=== PATIENT | female | born 1945 | race Caucasian/White ===

== ENCOUNTER 2020-09-08 19:41 | Emergency (ER) | payer MEDICARE, BC, SELFPAY ==
[2020-09-08 19:55] VITALS: BP 143/80; PULSE 62; RESP 18; TEMP 36.5; O2SAT 93
--- NOTE | 2020-09-08 20:13 | DI.CT_ITS ---
EXAM: CT CHEST/ABD/PEL W and CT recons thoracic and lumbar spine CLINICAL HISTORY: Fall down 6 stairs TECHNIQUE: Imaging Protocol: Axial computed tomography images with coronal and sagittal reformatted images were created and reviewed CONTRAST MATERIAL: Intravenous: Omnipaque 350 Contrast volume:99 mL Oral: No COMPARISON: No exams were available for comparison FINDINGS: CHEST: Tracheobronchial tree: Patent where visualized. Mediastinum and Aimee: No dominant adenopathy or fluid collection. Pulmonary parenchyma: Infiltrates are seen in the dependent portions of both lungs which may represen t contusions or atelectasis. No architectural distortion. 3 mm noncalcified pulmonary nodule in the anterolateral aspect of the left lower lobe. (Series 6, image 373). Pleura: There is a tiny right apical pneumothorax. No pleural effusion. Heart: The heart is not dilated. No coronary artery calcifications are seen. No pericardial effusion. Aorta: Thoracic aorta non-dilated. Atherosclerosis. Lymph nodes: Within normal limits. Bones:Acute fractures involving the posterior aspects of the right 2nd through 10th ribs. Acute nond isplaced fractures involving the delete right transverse processes and spinous processes of T9, T10 a nd T11. Tubes, Catheters, and Lines: Soft tissues: Unremarkable. CT recons thoracic spine: Acute fractures involving the T3 and T4 vertebral bodies. There is mild re tropulsion of the T4 vertebral body into the central spinal canal. There is 3-4 mm of retrolisthesis of T4 with respect T5. There also appears to be mild widening of the T4-T5 facet joints. ABDOMEN: Liver: Normal density. No measurable mass. Portal, Superior Mesenteric, and Splenic Veins: Unremarkable. Gallbladder and Biliary Tract: No radiodense calculus or dilation. Pancreas: Normal density, no abnormal calcifications or inflammatory process. Spleen: Normal. Adrenals: No masses seen. Kidneys: Normal size, contour and axis. No radiodense stones or obstructive uropathy. No masses seen. Abdominal Aorta: Abdominal portion non-dilated. Atherosclerosis. Bowel: No obstruction or bowel wall thickening. No evidence of acute appendicitis. Moderate amount o f retained stool. Peritoneal Cavity: No ascites, collection or mesenteric inflammatory response. Lymph Nodes: Within normal limits. Bones: Mildly displaced fracture of the right transverse far process of L3. Nondisplaced fracture of the right transverse process of L4. Degenerative changes in the spine. There is a prior bilateral hip prostheses. Grade 1 pseudo spondylolisthesis of L4 on L5 is noted. Compression deformities are seen of T11 and L1. These are of indeterminate age. Mild cortical regularity of the anterior and po sterior holland of the L4 vertebral body. This may represent an acute fracture. Soft Tissues: Unremarkable. PELVIS: Bladder: Symmetric distention, no gross wall thickening. There is artifact obscuring portions of the urinary bladder from the patient's bilateral total hip replacements. Reproductive Organs: Unremarkable as visualized. Lymph Nodes: Within normal limits. Bones: Please see above. CT recons lumbar spine: Right transverse process fractures of L3 and L4. The right L3 transverse pro cess fracture is mildly displaced. Cortical regularity of the anterior and posterior aspect of the L 4 vertebral body which may represent an acute fracture. IMPRESSION: 1. Acute fractures involving the right transverse processes of L3 and L4. 2. Mild cortical regularity of the anterior and posterior holland of the L4 vertebral body which may re present acute fracture. 3. No intra-abdominal or pelvic process. 4. Acute fractures involving the right 2nd through 10th ribs. 5. Acute fractures involving the right transverse processes and spinous processes of T9, T10 and T11. 6. Acute fractures involving the T3 and T4 vertebral bodies. There is mild retropulsion of the T4 ve rtebral body into the spinal canal. 7. Old T11 compression fracture. RADIATION DOSE DELIVERED: Total DLP DATA REPOSITORY: All CT scans at this facility are submitted to the National Radiology Data Registry (NRDR) Dose Index Registry (DIR) with the [employer] (A[employer]). RADIATION OPTIMIZATION: All CT scans at this facility use at least one of these dose optimization te chniques: automated exposure control; mA and/or kV adjustment per patient size (includes targeted exa ms where dose is matched to clinical indication); or iterative reconstruction.
--- NOTE | 2020-09-08 20:13 | DI.CT_ITS ---
EXAM: CT HEAD CERVICAL SPINE WO CLINICAL HISTORY: Fall down 6 stairs. TECHNIQUE: Imaging Protocol: Axial computed tomography images with coronal and sagittal reformatted images were created and reviewed COMPARISON: No exams were available for comparison FINDINGS: CT Head: Ventricles and Extra axial spaces: Normal in size and morphology for the patient's age. Hemorrhage: None. Cerebral parenchyma: Normal. Midline shift: None. Brainstem/Cerebellum: Normal. Calvarium: Normal. Visualized Paranasal sinuses/Mastoids: Clear. Soft Tissues: Unremarkable. CT Cervical Spine: Bones: There is an acute nondisplaced fracture through the lateral aspect of the body of C2. It does not extend to the transverse foramen. Moderate degenerative changes are present throughout the cerv ical spine. Soft Tissues: Unremarkable. Lung Apices: There is a small right apical pneumothorax. IMPRESSION: 1. No acute intracranial process. 2. Nondisplaced acute fracture through the lateral aspect of the body of C2. 3. Small right apical pneumothorax RADIATION DOSE DELIVERED: 1,034.91mGy.cm Total DLP DATA REPOSITORY: All CT scans at this facility are submitted to the National Radiology Data Registry (NRDR) Dose Index Registry (DIR) with the [employer] (ACR). RADIATION OPTIMIZATION: All CT scans at this facility use at least one of these dose optimization te chniques: automated exposure control; mA and/or kV adjustment per patient size (includes targeted exa ms where dose is matched to clinical indication); or iterative reconstruction.
[2020-09-08] MEDS: MORPHine 10 MG/ML VIAL 2 MG IVP (20:25)
[2020-09-08 20:26] LABS: Abs Immature Grans 0.43 10^3/uL (0.0-0.06); Absolute Lymphocyte Count 1.74 10^3/uL (1.2-3.4); Basophils % 0.2; Eosinophils % 0.8; HCT 40.8 % (36.0-46.0); HGB 13.2 g/dL (11.2-15.7); Immature Grans % 3.5; Lymphocytes % 14.3; MCH 30.8 pg (27.0-33.0); MCHC 32.4 % (32.0-36.0); MCV 95.3 fL (80-95); MPV 9.8 fL (8.0-11.0); Monocytes % 5.3; Neutrophils % 75.9; Nucleated RBC 0 %; Platelet Count 235 10^3/uL (130-400); RBC 4.28 10^6/uL (3.93-5.22); RDW-SD 42.4 fL; WBC 12.17 10^3/uL (4.4-10.8)
[2020-09-08] MEDS: Normal Saline 1,000 ML 1000 ML IV (20:26)
[2020-09-08 20:27] LABS: Absolute Basophil Count 0.02 10^3/uL (0.0-0.2); Absolute Monocyte Count 0.65 10^3/uL (0.1-0.8); Absolute Neutrophil Count 9.24 10^3/uL (1.2-6.7)
[2020-09-08 20:39] LABS: PTT Activated 18.5 sec (21.0-27.8); Prothrombin Time 10.1 sec (9.3-11.0)
[2020-09-08 20:43] LABS: ALT 97 U/L (14-59); AST 89 U/L (15-37); Albumin 3.9 g/dL (3.4-5.0); Alkaline Phosphatase 51 U/L (46-116); Anion Gap 4.2 mmol/L (3-11); BUN 17 mg/dL (7-18); Bilirubin, Total 0.3 mg/dL (0.2-1.0); CO2 29.8 mmol/L (21.0-32.0); CREATININE 0.89 mg/dL (0.55-1.02); Calcium 9.5 mg/dL (8.5-10.1); Chloride 103 mmol/L (98-107); Glucose 113 mg/dL (74-106); Lipase 90 U/L (73-393); Potassium 4.6 mmol/L (3.5-5.1); Sodium 137 mmol/L (136-145); Total Protein 6.6 g/dL (6.4-8.2)
[2020-09-08] MEDS: Omnipaque 350 MG/ML 100 ML BTL IV (20:46)
[2020-09-08 21:17] VITALS: BP 145/67; PULSE 67; RESP 16; O2SAT 94
--- NOTE | 2020-09-08 21:25 | DI.VRAD_ITS ---
Addendum created by Hector Willis DO on 09/08/2020 10:00:43 PM EDT: Noted but not mentioned on initial report, a minute right apical pneumothorax is suspected. It is better demonstrated on concurrent CT examination of chest. Nondisplaced fracture of right 2nd rib is subtly demonstrated on the CT study of cervical spine and better seen on concurrent CT examination of chest. There is a nondisplaced fracture through lateral aspect body of C2 which does not extend to transverse foramen, 06/30, . Additional findings were called to and discussed with HAYLEY Santacruz, at approximately 10:00 p.m. on September 08, 2020 Initial report created on 09/08/2020 9:25:49 PM EDT: PROCEDURE INFORMATION: Exam: CT Head Without Contrast Exam date and time: 09/08/2020 8:47 PM Age: 75 years old Clinical indication: Injury or trauma; Blunt trauma (contusions or hematomas); Patient HX: S/P fall down 6 stairs TECHNIQUE: Imaging protocol: Computed tomography of the head without contrast. COMPARISON: No relevant prior studies available. FINDINGS: Brain: There is mild diffuse cerebral atrophy present, consistent with this patient's age. No hemorrhage. Unremarkable white matter. No mass effect. Cerebral ventricles: No ventriculomegaly. Bones/joints: Unremarkable. No acute fracture. Paranasal sinuses: Visualized sinuses are unremarkable. No fluid levels. Mastoid air cells: Visualized mastoid air cells are well aerated. Soft tissues: Unremarkable. IMPRESSION: No acute intracranial abnormality. PROCEDURE INFORMATION: Exam: CT Cervical Spine Without Contrast Exam date and time: 09/08/2020 8:47 PM Age: 75 years old Clinical indication: Injury or trauma; Blunt trauma (contusions or hematomas); Patient HX: S/P fall down 6 stairs TECHNIQUE: Imaging protocol: Computed tomography images of the cervical spine without contrast. COMPARISON: No relevant prior studies available. FINDINGS: Bones/joints: No acute fracture. C5 is minimally subluxed posteriorly with respect to C4 and C6. Multilevel degenerative changes. Discs/Spinal canal/Neural foramina: No significant disc protrusion. No severe spinal canal stenosis. No significant neural foraminal narrowing. Soft tissues: Unremarkable. Lungs: Lung apices are normal. IMPRESSION: 1. No acute fracture. 2. Minimal posterior subluxation of C5. 3. Multilevel degenerative changes. Dictated and Authenticated by: Hector Willis MD. Ordering:XUAN Abdi MD
--- NOTE | 2020-09-08 22:06 | DI.VRAD_ITS ---
PROCEDURE INFORMATION: Exam: CT Chest With Contrast Exam date and time: 09/08/2020 8:47 PM Age: 75 years old Clinical indication: Injury; Blunt trauma; S/P fall down 6 stairs TECHNIQUE: Imaging protocol: Computed tomography of the chest with intravenous contrast. Radiation optimization: All CT scans at this facility use at least one of these dose optimization techniques: automated exposure control; mA and/or kV adjustment per patient size (includes targeted exams where dose is matched to clinical indication); or iterative reconstruction. Contrast material: OMNI 350; Contrast volume: 100 ml; Contrast route: INTRAVENOUS (IV); COMPARISON: No relevant prior studies available. FINDINGS: Lungs: Posterior lung dependent parenchymal changes bilaterally. 3 mm nodule lateral left lower lobe image 38, series 5. Pleural space: No pleural fluid collection. Trace right pneumothorax, also seen on CT cervical spine 09/08/2020. Heart: No cardiomegaly. No pericardial effusion. Aorta: Unremarkable. No aortic aneurysm. Lymph nodes: No enlarged lymph nodes. Bones/joints: Acute non-displaced fractures of the right 8th through 11th posterior ribs and the right 3rd through 7th posterolateral ribs. Acute fracture of the right 2nd posterior rib. Acute fracture of the posteromedial right 3rd rib. Non-displaced fractures of the right 4th, 5th, and 6th anterolateral ribs. Fractures of the right transverse process of T9, T10, and T11. Fractures of the spinous processes T9, T10, and T11. Acute fractures of the T3 and T4 vertebral bodies. 3-4 mm retrolisthesis of T4 with respect to T5 with mild widening of the right T4-5 facet joint. Deformity of the proximal right humerus. Likely old moderate loss of height of T11. Soft tissues: Unremarkable. IMPRESSION: 1. Acute non-displaced fractures of the right 8th through 11th posterior ribs and the right 3rd through 7th posterolateral ribs. Acute fracture of the right 2nd posterior rib. 2. Acute fracture of the posteromedial right 3rd rib. 3. Non-displaced fractures of the right 4th, 5th, and 6th anterolateral ribs. 4. Fractures of the right transverse process of T9, T10, and T11. 5. Fractures of the spinous processes T9, T10, and T11. 6. Acute fractures of the T3 and T4 vertebral bodies. 3-4 mm retrolisthesis of T4 with respect to T5 with mild widening of the right T4-5 facet joint. 7. Likely old moderate loss of height of T11. 8. Trace right pneumothorax, also seen on CT cervical spine 09/08/2020. 9. 3 mm nodule lateral left lower lobe image 38, series 5. For patients at low risk (minimal or absent history of smoking and of other known risk factors), no routine follow-up is indicated. For patients at high risk (history of smoking or of other known risk factors), consider optional CT Chest at 12 months. (Reference: Jairo). REFERENCES: Jairo Ramirez et al. Guidelines for Management of Incidental Pulmonary Nodules Detected on CT Images: From the Fleischner Society 2017. Radiology. 2017;284(1):228-243. PROCEDURE INFORMATION: Exam: CT Abdomen And Pelvis With Contrast Exam date and time: 09/08/2020 8:47 PM Age: 75 years old Clinical indication: Injury; Blunt trauma; S/P fall down 6 stairs TECHNIQUE: Imaging protocol: Computed tomography of the abdomen and pelvis with intravenous contrast. Radiation optimization: All CT scans at this facility use at least one of these dose optimization techniques: automated exposure control; mA and/or kV adjustment per patient size (includes targeted exams where dose is matched to clinical indication); or iterative reconstruction. Contrast material: OMNI 350; Contrast volume: 100 ml; Contrast route: INTRAVENOUS (IV); COMPARISON: No relevant prior studies available. FINDINGS: Liver: Normal. No mass. Gallbladder and bile ducts: Normal. No calcified stones. No ductal dilation. Pancreas: Normal. No ductal dilation. Spleen: Normal. No splenomegaly. Adrenal glands: Normal. No mass. Kidneys and ureters: Normal. No hydronephrosis. Stomach and bowel: Unremarkable. No obstruction. No mucosal thickening. Appendix: No evidence of appendicitis. Intraperitoneal space: Unremarkable. No free air. No significant fluid collection. Vasculature: Unremarkable. No abdominal aortic aneurysm. Lymph nodes: Unremarkable. No enlarged lymph nodes. Urinary bladder: Unremarkable as visualized. Reproductive: Atrophic uterus and ovaries. Bones/joints: Spinal degenerative changes. Acute fracture of the right transverse process of L3. Non-displaced fracture of the right transverse process of L4. Mild cortical irregularity of the anterior and posterior aspect of L4 suggesting possible acute fracture. Retrolisthesis of L5 with respect to L4. Age-indeterminate moderate compression of L1. Streak artifact from bilateral metallic hip prostheses obscures portions of the lower pelvis. Soft tissues: Fat-containing umbilical hernia. IMPRESSION: 1. Acute fracture of the right transverse process of L3. 2. Non-displaced acute fracture of the right transverse process of L4. 3. Mild cortical irregularity of the anterior and posterior aspect of L4 suggesting possible acute fracture. 4. No acute intra-abdominal or pelvic process. Dictated and Authenticated by: Neel Shetty MD. Ordering:XUAN Abdi MD
--- NOTE | 2020-09-08 22:15 | DI.VRAD_ITS ---
PROCEDURE INFORMATION: Exam: CT Thoracic Spine Without Contrast Exam date and time: 09/08/2020 8:48 PM Age: 75 years old Clinical indication: Injury; Blunt trauma. S/P fall down 6 stairs TECHNIQUE: Imaging protocol: Computed tomography images of the thoracic spine without contrast. COMPARISON: No relevant prior studies available. FINDINGS: Vertebrae: Acute fractures of the T3 and T4 vertebral bodies. 3-4 mm retrolisthesis of T4 with with respect to T5 with mild widening of each T3-4 and T4-5 facet joint. Fractures of the right transverse process of T9, T10, and T11. Fractures of the spinous processes T9, T10, and T11. Likely old moderate compression T11. Soft tissue edema anterolateral to the T3 / T4 region. Discs/Spinal canal/Neural foramina: No significant disc protrusion. No significant neural foraminal narrowing. Other bones/joints: Acute fracture of the right 2nd posterior rib. Acute fracture of the posteromedial right 3rd rib. Acute non-displaced fractures of the right 8th through 11th posterior ribs. Soft tissues: Soft tissue edema anterolateral to the T3 / T4 region. Pleural space: Trace right pneumothorax. IMPRESSION: 1. Acute fractures of the T3 and T4 vertebral bodies. 3-4 mm retrolisthesis of T4 with with respect to T5 with mild widening of the each T3-4 and T4-5 facet joint (greater at T4-5). 2. Acute fracture of the right 2nd posterior rib. 3. Acute fracture of the posteromedial right 3rd rib. 4. Acute non-displaced fractures of the right 8th through 11th posterior ribs. 5. Fractures of the right transverse process of T9, T10, and T11. 6. Fractures of the spinous processes T9, T10, and T11. 7. Likely old moderate compression T11. 8. Trace right pneumothorax. PROCEDURE INFORMATION: Exam: CT Lumbar Spine Without Contrast Exam date and time: 09/08/2020 8:48 PM Age: 75 years old Clinical indication: Injury; Blunt trauma. S/P fall down 6 stairs TECHNIQUE: Imaging protocol: Computed tomography images of the lumbar spine without contrast. COMPARISON: No relevant prior studies available. FINDINGS: Vertebrae: Acute fracture of the right transverse process of L3. Non-displaced fracture of the right transverse process of L4. Mild cortical irregularity of the anterior and posterior aspect of L4 suggesting possible acute fracture. Age-indeterminate moderate compression of L1. Retrolisthesis of L5 with respect to L4. Severe central canal stenosis at L4-L5. Discs/Spinal canal/Neural foramina: Spinal degenerative changes. Diffusely bulging disc at L5-S1. Intraperitoneal space: Streak artifact from bilateral metallic hip prostheses obscures portions of the lower pelvis. Soft tissues: Unremarkable. IMPRESSION: 1. Acute fracture of the right transverse process of L3. 2. Non-displaced fracture of the right transverse process of L4. 3. Mild cortical irregularity of the anterior and posterior aspect of L4 suggesting possible acute fracture. 4. Age-indeterminate moderate compression of L1. 5. Retrolisthesis of L5 with respect to L4. Severe central canal stenosis at L4-L5. 6. Diffusely bulging disc at L5-S1. Dictated and Authenticated by: Neel Shetty MD. Ordering:XUAN Abdi MD
--- NOTE | 2020-09-08 22:47 | W.ED.GENAD ---
Discharge Plan Disposition Patient Disposition: [facility] Condition: Serious Discharge Details Chief Complaint: Trauma Clinical Impression: Trauma, C2 cervical fracture, Pneumothorax, Fracture, ribs, Fracture of lumbar spine, Fracture of thoracic spine Primary Care Provider: Tita,Local ED Provider: Jin Warren Home Meds and New Rx's Prescriptions: No Action trazodone 50 mg Tablet 50 mg PO HS RF: 0 acetaminophen [Tylenol Arthritis Pain] 650 mg Tablet Extended Release 650 mg PO 6XD RF: 0 citalopram [Celexa] 40 mg Tablet 20 mg PO DAILY AM RF: 0 bupropion HCl 150 mg Tablet Extended Release 24 Hr 450 mg PO DAILY AM RF: 0 Medical Decision Making 75-year-old female presents status post mechanical fall just prior to arrival. IV established. We will give 2 mg IV morphine, 1 L IV fluids, initiate trauma protocol including CT of head, C-spine, chest, abdomen, pelvis, thoracic and lumbar spine. Patient appears in mild distress however she is neurologically intact. She denies any numbness, tingling, weakness, headache, LOC. She has no saddle paresthesias. 12.17 WBC, 13.2 hemoglobin, 40.8 hematocrit platelet count 235, INR 1.0 chemistries unremarkable. Creatinine 0.89 with a GFR greater than 60 glucose 113 calcium 9.5 lipase 90. Patient unable to provide urine sample. I received the CT of head and C-spine. No acute fracture, minimal posterior subluxation of C5, multilevel degenerative changes. No acute intracranial abnormality. Given these findings I placed a call to spine at [facility] for consultation. I then received a secondary phone call reporting and over read. There was a nondisplaced fracture through the lateral aspect body of C2 which does not extend to the transverse from and. There is a nondisplaced fracture of the right second rib. Given this I did request to speak with the trauma team for potential transfer versus the spine team for consultation. Patient did remain in her c-collar precautions. The remaining CT imaging resulted and revealed acute fracture of the T3 and T4 vertebral bodies. 3-4 mm retrolithiasis of T4 with respect to T5 with mild widening of each T3-4 and T4-5 facet joint. Fracture of the right second posterior rib, fracture of the posterior medial right third rib. Acute fracture of the eighth through 11th right posterior ribs. Fracture of the right transverse process of T9-T10-T11, as well as the spinous processes. Trace right pneumothorax. Acute fracture of the right transverse process of L3. Nondisplaced acute fracture of the right transverse process of L4. Mild cortical irregularities of the anterior and posterior aspect of L4 suggesting possible acute fracture. No acute intra-abdominal or pelvic process. Patient was placed on O2 8 L nasal cannula. I was able to speak with Dr. Castillo, trauma. We discussed this patient's presentation and work-up here in the ER. He would like the patient to remain supine, in C-spine precautions, not on a backboard. He is happy to accept care of the patient. This will be an ER to ER transfer. All appropriate paperwork signed. Patient received a second dose of IV morphine and a single dose of IV Zofran. Patient remained hemodynamically stable and neurologically intact while under my care. I was able to speak with the patient's friend No regarding her initial presentation. I did leave a message on the patient's daughter's phone, [email or web address], however she did not call me back at the time the patient was transferred. Lab Data Lab results reviewed: Yes I reviewed the patient's lab results. Lab results narrative: Laboratory Tests Range/Units 09/08/20 09/08/20 09/08/20 20:15 20:15 20:15 WBC (4.4-10.8) 10^3/uL 12.17 H RBC (3.93-5.22) 10^6/uL 4.28 Hgb (11.2-15.7) g/dL 13.2 Hct (36.0-46.0) % 40.8 MCV (80-95) fL 95.3 H MCH (27.0-33.0) pg 30.8 MCHC (32.0-36.0) % 32.4 RDW (11.7-14.6) % 12.0 Plt Count (130-400) 10^3/uL 235 MPV (8.0-11.0) fL 9.8 Immature Gran % 3.5 Neutrophils % 75.9 Lymphocytes % 14.3 Monocytes % 5.3 Eosinophils % 0.8 Basophils % 0.2 Nucleated RBC % % 0 Absolute Neutrophils (1.2-6.7) 10^3/uL 9.24 H Absolute Lymphocytes (1.2-3.4) 10^3/uL 1.74 Absolute Monocytes (0.1-0.8) 10^3/uL 0.65 Absolute Eosinophils (0.0-0.7) 10^3/uL 0.10 Absolute Basophils (0.0-0.2) 10^3/uL 0.02 PT (9.3-11.0) sec 10.1 INR (0.9-1.1) 1.0 APTT (21.0-27.8) sec 18.5 L Sodium (136-145) mmol/L 137 Potassium (3.5-5.1) mmol/L 4.6 Chloride (98-107) mmol/L 103 Carbon Dioxide (21.0-32.0) mmol/L 29.8 Anion Gap (3-11) mmol/L 4.2 BUN (7-18) mg/dL 17 Creatinine (0.55-1.02) mg/dL 0.89 Estimated GFR/1.73 m2 (mL/min/1.73m2) >= 60.00 Glucose (74-106) mg/dL 113 H Calcium (8.5-10.1) mg/dL 9.5 Total Bilirubin (0.2-1.0) mg/dL 0.3 AST (15-37) U/L 89 H ALT (14-59) U/L 97 H Alkaline Phosphatase (46-116) U/L 51 Total Protein (6.4-8.2) g/dL 6.6 Albumin (3.4-5.0) g/dL 3.9 Lipase (73-393) U/L 90 HPI General Mode of arrival: EMS. Date/Time Provider Initiated Documentation: 09/08/20 20:12. Limitations to Documentation: no limitations. Information obtained by: patient and EMS. HPI Narrative: This is a 75-year-old female with a history of osteoporosis, is not anticoagulated, who is here in the area at a [facility] retreat for 6 months. She has been here for 1 month and has not traveled or had any sick exposures. Just prior to arrival she was attempting to clean some cobwebs when she lost her balance falling down 6 stairs. She reports that she tumbled down the stairs essentially hitting everything on the way down but her primary concern is that of back pain. She reports that she struck her head but denies any LOC or headache. She reports that her neck is sore but not really painful. She reports diffuse moderate to severe back pain. She denies any visual changes, chest pain, abdominal pain, nausea vomiting, incontinence, numbness, tingling, weakness. She has not been given any medications prior to arrival here. Related Data Home Medications Medication Instructions Recorded Confirmed acetaminophen [Tylenol Arthritis 650 mg PO 6XD 09/08/20 09/08/20 Pain] bupropion HCl 450 mg PO DAILY AM 09/08/20 09/08/20 citalopram [Celexa] 20 mg PO DAILY AM 09/08/20 09/08/20 trazodone 50 mg PO HS 09/08/20 09/08/20 Allergies Allergy/AdvReac Type Severity Reaction Status Date / Time Sulfa (Sulfonamide Allergy Unverified 09/08/20 20:02 Antibiotics) General Stated Complaint: Trauma BRITTANY: 2 Review of Systems Constitutional Constitutional: Denies fever(s), Denies headache(s) and Denies weakness Eyes Eyes: Denies change in vision ENT Ears, Nose, Mouth, and Throat: Denies headache(s) and Reports neck pain Cardiovascular Cardiovascular: Denies chest pain and Denies dyspnea Respiratory Respiratory: Denies cough and Denies dyspnea Gastrointestinal Gastrointestinal: Denies abdominal pain, Denies fecal incontinence, Denies nausea and Denies vomiting Genitourinary Genitourinary: Denies urinary incontinence Musculoskeletal Musculoskeletal: Reports myalgias, Denies muscle weakness, Reports neck pain, Denies numbness and Denies tingling Integumentary/Breasts Skin/Breast: Denies rash Neurologic Neurologic: Denies headache(s), Denies numbness, Denies tingling and Denies weakness Hematologic/Lymphatic Hematologic/Lymphatic: Denies easy bleeding and Denies easy bruising [facility] Social History Smoking/Tobacco Use Status: Never Smoking risk assessment performed?: Yes Alcohol Intake: current Alcohol Intake frequency: holidays/special occasions only Do you feel safe at home: Yes Do you feel safe in your relationship?: Yes Exam Const General: cooperative, healthy appearing and in distress mild Orientation: alert, awake and oriented x3 HENMT Head: normal to inspection, no palpable skull fracture, normocephalic and atraumatic Ears: external ears normal, TM's normal bilaterally and EAC's normal General nose exam: external nose normal Face and sinus: normal facial exam Mouth: oral mucosae normal and moist mucous membranes Eyes General: appearance normal, both eyes and all related structures Alignment and Position: alignment normal Periorbital: periorbital findings normal Eyelids: eyelids normal Conjunctivae: conjunctivae normal Sclera: sclerae normal Cornea: corneas normal Pupils: PERRL EOM: EOM intact bilaterally Direct ophthalmoscopy: normal light reflex Neck Neck: normal visual inspection, trachea midline, supple and tender (Diffuse mild posterior. In a c-collar) Chest Chest: normal inspection of the chest and tenderness (Diffuse mild left lateral) Resp Effort & Inspection: normal respiratory effort and able to speak in complete sentences Auscultation: clear to auscultation bilaterally Cardio Rate: regular rate Rhythm: regular rhythm GI Inspection: normal to inspection Palpation: soft, not firm and nontender Auscultation: normal bowel sounds Back/Spine/Pelvis Back: no CVA tenderness, back tenderness (Diffuse, thoracic point tenderness) and other (While maintaining C-spine precautions, rolled to her right) Pelvis: no pain with anterior-posterior compression Skin General skin exam: no rashes or lesions noted Neuro General: patient alert, patient awake, patient oriented x3, moves all extremities and no focal motor deficits Cranial Nerves: CN's II-XI intact bilaterally Cognition: normal cognition Speech: speech normal Motor: muscle tone normal throughout and strength 5/5 throughout Sensory Exam: no sensory deficits noted Extrem General: normal to inspection, full ROM, capillary refill normal, no pedal edema and no calf tenderness Psych Appearance: grossly normal Mental Status: mental status grossly normal Course Vital Signs Vital signs: Vital Signs Temperature 36.5 C 09/08/20 19:55 Pulse 62 09/08/20 19:55 Respiratory Rate 18 09/08/20 19:55 Blood Pressure 143/80 H 09/08/20 19:55 Pulse Oximetry 93 09/08/20 19:55 Temperature 36.5 C 09/08/20 19:55 Temperature Source Temporal Artery Scan 09/08/20 19:55 Pulse 67 09/08/20 21:17 Respiratory Rate 16 09/08/20 21:17 Respiratory Effort 09/08/20 21:18 Blood Pressure 145/67 H 09/08/20 21:17 Blood Pressure Position Supine 09/08/20 19:55 Pulse Oximetry 94 09/08/20 21:17 Oxygen Delivery Method Room Air 09/08/20 19:55 Oxygen Flow Rate 0 09/08/20 19:55 Pain Level 7 09/08/20 19:55 Lab/Test Results Lab/Test Results: Laboratory Tests Range/Units 09/08/20 09/08/20 09/08/20 20:15 20:15 20:15 WBC (4.4-10.8) 10^3/uL 12.17 H RBC (3.93-5.22) 10^6/uL 4.28 Hgb (11.2-15.7) g/dL 13.2 Hct (36.0-46.0) % 40.8 MCV (80-95) fL 95.3 H MCH (27.0-33.0) pg 30.8 MCHC (32.0-36.0) % 32.4 RDW (11.7-14.6) % 12.0 Plt Count (130-400) 10^3/uL 235 MPV (8.0-11.0) fL 9.8 Immature Gran % 3.5 Neutrophils % 75.9 Lymphocytes % 14.3 Monocytes % 5.3 Eosinophils % 0.8 Basophils % 0.2 Nucleated RBC % % 0 Absolute Neutrophils (1.2-6.7) 10^3/uL 9.24 H Absolute Lymphocytes (1.2-3.4) 10^3/uL 1.74 Absolute Monocytes (0.1-0.8) 10^3/uL 0.65 Absolute Eosinophils (0.0-0.7) 10^3/uL 0.10 Absolute Basophils (0.0-0.2) 10^3/uL 0.02 PT (9.3-11.0) sec 10.1 INR (0.9-1.1) 1.0 APTT (21.0-27.8) sec 18.5 L Sodium (136-145) mmol/L 137 Potassium (3.5-5.1) mmol/L 4.6 Chloride (98-107) mmol/L 103 Carbon Dioxide (21.0-32.0) mmol/L 29.8 Anion Gap (3-11) mmol/L 4.2 BUN (7-18) mg/dL 17 Creatinine (0.55-1.02) mg/dL 0.89 Estimated GFR/1.73 m2 (mL/min/1.73m2) >= 60.00 Glucose (74-106) mg/dL 113 H Calcium (8.5-10.1) mg/dL 9.5 Total Bilirubin (0.2-1.0) mg/dL 0.3 AST (15-37) U/L 89 H ALT (14-59) U/L 97 H Alkaline Phosphatase (46-116) U/L 51 Total Protein (6.4-8.2) g/dL 6.6 Albumin (3.4-5.0) g/dL 3.9 Lipase (73-393) U/L 90 Critical Care Time Critical Care Time Critical Care Time: Yes Total Critical Care Time: 45 Attestation: Upon my evaluation, this patient had a high probability of clinically significant, life-threatening deterioration due to their current medical conditions, which required my direct attention, intervention, and personal management. I have personally provided greater than 30 minutes of critical care time exclusive of the time spend on separately billable procedures. Time includes obtaining a history, examining the patient, pulse oximetry, review of laboratory data, radiology results, discussion with consultants, arranging urgent treatment with development of a management plan, evaluation of patient's response to treatment, and monitoring for potential decompensation. Interventions were performed as documented above.
[2020-09-08] MEDS: Ondansetron 4 MG/2 ML VIAL (22:58)
[2020-09-08 23:00] VITALS: BP 149/78; PULSE 69; RESP 17; O2SAT 100
[2020-09-08 23:27] LABS: Bilirubin Negative (Negative); Blood Negative (Negative); Clarity Clear (Clear); Glucose Negative (Negative); Ketones Trace mg/dL (Negative); Leukocyte Esterase Trace (Negative); Nitrite Negative (Negative); Urobilinogen 0.2 EU/dL (Up TO 0.2)
[2020-09-08 23:36] LABS: Bacteria Negative HPF (Negative); C & S Indicated? Yes; Casts Negative LPF (Negative); Crystals Negative HPF (Negative); Epithelial Cells Few HPF (Negative); Mucus Negative (Negative); RBC Negative HPF (0-2)
== END 2020-09-08 23:20 | disposition short-term general hospital (02) ==
PROVIDERS: Emergency Provider Physician Assistant
DX: S12.101A Unspecified nondisplaced fracture of second cervical vertebra, initial encounter for closed fracture (principal); S22.41XA Multiple fractures of ribs, right side, initial encounter for closed fracture; S22.038A Other fracture of third thoracic vertebra, initial encounter for closed fracture; S22.042 Unstable burst fracture of fourth thoracic vertebra; S32.038A Other fracture of third lumbar vertebra, initial encounter for closed fracture; S32.048A Other fracture of fourth lumbar vertebra, initial encounter for closed fracture; W10.8XXA Fall (on) (from) other stairs and steps, initial encounter
CPT/HCPCS: 74177; 80053; 83690; 87077; 96361; 96374; 96375; 96376; 99291; 70450; 71260; 72125; 81003; 81015; 85025; 85610; 85730; 87086; 87186; J2270; J2405; J3490